=== PATIENT | female | born 1995 | race Caucasian/White ===

== ENCOUNTER 2018-02-19 22:05 | Emergency (ER) | payer BC ==
[2018-02-19] MEDS ORDERED: NORG1TAB74 PO (22:09)
--- NOTE | 2018-02-19 22:09 | ER Report ---
History and Physical Time Seen By MD: 22:08 HPI/ROS CHIEF COMPLAINT: Vomiting and diarrhea HISTORY OF PRESENT ILLNESS: 22-year-old female presents ambulatory to the ER complaining of diarrhea since early afternoon. She is currently on amoxicillin , day 8 for strep pharyngitis. Patient denies recent travel or exposure to ill contacts. She denies consumption of bad food. She notes diffuse crampy abdominal pain 07/05. She said several episodes of vomiting without hematemesis. She notes no fevers. She denies dysuria or hematuria REVIEW OF SYSTEMS: Respiratory: No cough, no dyspnea. Cardiovascular: No chest pain, no palpitations. Gastrointestinal: As above Musculoskeletal: No back pain. Allergies: Coded Allergies: No Known Drug Allergies (Unverified , 02/19/18) Home Meds Active Scripts Ondansetron (ZOFRAN ODT) 4 Mg Tab.rapdis, 4 MG PO every 6 hours Y for NAUSEA/ VOMITING, #15 TAB TAKE 1 TABLET BY MOUTH EVERY 12 HOURS Prov:SYLVIE GUTIÉRREZ DO 02/19/18 Tramadol Hcl (TRAMADOL HCL) 50 Mg Tablet, 1 TAB PO Q6H Y for PAIN, #15 MG TAKE ONE TO TWO TABLETS BY MOUTH EVERY FOUR TO SIX HOURS NEEDED Prov:SYLVIE GUTIÉRREZ DO 02/19/18 Reported Medications Norgestimate-Ethinyl Estradiol (SPRINTEC) 1 Each Tablet, 1 EACH PO DAILY 02/19/18 Reviewed Nurses Notes: Yes Old Medical Records Reviewed: Yes Constitutional Vital Sign - Last 24 Hours 02/19/18 02/19/18 02/19/18 02/19/18 22:09 22:15 22:45 23:00 Temp 98.3 Pulse 100 71 75 72 Resp 14 B/P (MAP) 144/108 120/83 (95) Pulse Ox 95 90 98 94 O2 Delivery Room Air 02/19/18 23:30 Pulse 85 Resp 14 B/P (MAP) 123/71 (88) Pulse Ox 94 O2 Delivery Room Air Physical Exam General Appearance: The patient is alert, has no immediate need for airway protection and no current signs of toxicity. Vital signs stable, afebrile, pulse ox normal, slightly pale appearing, skin warm and dry HEENT: Pupils equal and round no injection. Oropharynx with moist mucous membranes, no erythema Respiratory: Chest is non tender, lungs are clear to auscultation. Cardiac: regular rate and rhythm Gastrointestinal: Abdomen is soft, mild diffuse tenderness, no masses, bowel sounds hyperactive Musculoskeletal: Neck: Neck is supple and non tender. No lymphadenopathy Extremities have full range of motion and are non tender. Skin: No rashes or lesions. DIFFERENTIAL DIAGNOSIS: After history and physical exam differential diagnosis was considered for abdominal pain including but not limited to appendicitis, cholecystitis, gastritis, gastroenteritis, food poisoning, viral syndrome, Clostridium difficile diarrhea and urinary tract infection. Medical Decision Making Data Points Result Diagram: 02/19/18220802/19/182208 Laboratory Hematology Test 02/19/18 22:09 02/19/18 22:28 Red Blood Count 5.68 M/uL (4.17-5.56) Mean Corpuscular Volume 85.1 fL (80.0-96.0) Mean Corpuscular Hemoglobin 29.9 pg (26.0-33.0) Mean Corpuscular Hemoglobin Concent 35.1 g/dL (32.0-36.0) Red Cell Distribution Width 13.4 % (11.5-14.5) Mean Platelet Volume 7.5 fL (7.2-11.1) Neutrophils (%) (Auto) 85.6 % (39.4-72.5) Lymphocytes (%) (Auto) 8.0 % (17.6-49.6) Monocytes (%) (Auto) 5.4 % (4.1-12.4) Eosinophils (%) (Auto) 0.3 % (0.4-6.7) Basophils (%) (Auto) 0.7 % (0.3-1.4) Nucleated RBC Relative Count (auto) 0.1 /100WBC Neutrophils # (Auto) 11.8 K/uL (2.0-7.4) Lymphocytes # (Auto) 1.1 K/uL (1.3-3.6) Monocytes # (Auto) 0.7 K/uL (0.3-1.0) Eosinophils # (Auto) 0.0 K/uL (0.0-0.5) Basophils # (Auto) 0.1 K/uL (0.0-0.1) Nucleated RBC Absolute Count (auto) 0.01 K/uL Sodium Level 137 mmol/L (137-145) Potassium Level 3.5 mmol/L (3.5-5.0) Chloride Level 101 mmol/L (98-107) Carbon Dioxide Level 23 mmol/L (22-31) Blood Urea Nitrogen 8 mg/dl (7-18) Creatinine 0.80 mg/dl (0.52-1.04) Glomerular Filtration Rate Calc > 60.0 Random Glucose 107 mg/dl (75-110) Calcium Level 10.1 mg/dl (8.4-10.2) Total Bilirubin 0.4 mg/dl (0.2-1.3) Aspartate Amino Transf (AST/SGOT) 25 U/L (0-35) Alanine Aminotransferase (ALT/SGPT) 38 U/L (0-56) Alkaline Phosphatase 98 U/L (0-126) Total Protein 8.8 gm/dl (6.3-8.2) Albumin 4.7 g/dl (3.5-5.0) Amylase Level 112 U/L (0-110) Lipase 79 U/L (23-300) Human Chorionic Gonadotropin, Qual Negative (NEGATIVE) Urine Color Yellow Urine Clarity Slightly-cloudy Urine pH 5.0 pH (4.8-9.5) Urine Specific [place] 1.017 Urine Protein Negative mg/dL (NEGATIVE) Urine Glucose (UA) Negative mg/dL (NEGATIVE) Urine Ketones Trace mg/dL (NEGATIVE) Urine Blood Negative (NEGATIVE) Urine Nitrite Negative (NEGATIVE) Urine Bilirubin Negative (NEGATIVE) Urine Urobilinogen Negative mg/dL (0.2-1.9) Urine Leukocyte Esterase Negative (NEGATIVE) Urine RBC 2 /HPF (0-2/HPF) Urine WBC <1 /HPF (0-5/HPF) Urine Squamous Epithelial Cells Many /LPF (</=FEW) Urine Bacteria Few /HPF (NONE-FEW) Urine Mucus Few /HPF (NONE-FEW) Stool Leukocytes, Qualitative Positive Clostridium Difficile Toxin A & B Negative Clostridium difficile Antigen Positive Chemistry Test 02/19/18 22:09 02/19/18 22:28 White Blood Count 13.8 k/uL (4.5-11.0) Red Blood Count 5.68 M/uL (4.17-5.56) Hemoglobin 17.0 g/dL (12.0-16.0) Hematocrit 48.3 % (34.0-47.0) Mean Corpuscular Volume 85.1 fL (80.0-96.0) Mean Corpuscular Hemoglobin 29.9 pg (26.0-33.0) Mean Corpuscular Hemoglobin Concent 35.1 g/dL (32.0-36.0) Red Cell Distribution Width 13.4 % (11.5-14.5) Platelet Count 425 K/uL (150-450) Mean Platelet Volume 7.5 fL (7.2-11.1) Neutrophils (%) (Auto) 85.6 % (39.4-72.5) Lymphocytes (%) (Auto) 8.0 % (17.6-49.6) Monocytes (%) (Auto) 5.4 % (4.1-12.4) Eosinophils (%) (Auto) 0.3 % (0.4-6.7) Basophils (%) (Auto) 0.7 % (0.3-1.4) Nucleated RBC Relative Count (auto) 0.1 /100WBC Neutrophils # (Auto) 11.8 K/uL (2.0-7.4) Lymphocytes # (Auto) 1.1 K/uL (1.3-3.6) Monocytes # (Auto) 0.7 K/uL (0.3-1.0) Eosinophils # (Auto) 0.0 K/uL (0.0-0.5) Basophils # (Auto) 0.1 K/uL (0.0-0.1) Nucleated RBC Absolute Count (auto) 0.01 K/uL Glomerular Filtration Rate Calc > 60.0 Calcium Level 10.1 mg/dl (8.4-10.2) Total Bilirubin 0.4 mg/dl (0.2-1.3) Aspartate Amino Transf (AST/SGOT) 25 U/L (0-35) Alanine Aminotransferase (ALT/SGPT) 38 U/L (0-56) Alkaline Phosphatase 98 U/L (0-126) Total Protein 8.8 gm/dl (6.3-8.2) Albumin 4.7 g/dl (3.5-5.0) Amylase Level 112 U/L (0-110) Lipase 79 U/L (23-300) Human Chorionic Gonadotropin, Qual Negative (NEGATIVE) Urine Color Yellow Urine Clarity Slightly-cloudy Urine pH 5.0 pH (4.8-9.5) Urine Specific [place] 1.017 Urine Protein Negative mg/dL (NEGATIVE) Urine Glucose (UA) Negative mg/dL (NEGATIVE) Urine Ketones Trace mg/dL (NEGATIVE) Urine Blood Negative (NEGATIVE) Urine Nitrite Negative (NEGATIVE) Urine Bilirubin Negative (NEGATIVE) Urine Urobilinogen Negative mg/dL (0.2-1.9) Urine Leukocyte Esterase Negative (NEGATIVE) Urine RBC 2 /HPF (0-2/HPF) Urine WBC <1 /HPF (0-5/HPF) Urine Squamous Epithelial Cells Many /LPF (</=FEW) Urine Bacteria Few /HPF (NONE-FEW) Urine Mucus Few /HPF (NONE-FEW) Stool Leukocytes, Qualitative Positive Clostridium Difficile Toxin A & B Negative Clostridium difficile Antigen Positive Urinalysis Test 02/19/18 22:28 Urine Color Yellow Urine Clarity Slightly-cloudy Urine pH 5.0 pH (4.8-9.5) Urine Specific [place] 1.017 Urine Protein Negative mg/dL (NEGATIVE) Urine Glucose (UA) Negative mg/dL (NEGATIVE) Urine Ketones Trace mg/dL (NEGATIVE) Urine Blood Negative (NEGATIVE) Urine Nitrite Negative (NEGATIVE) Urine Bilirubin Negative (NEGATIVE) Urine Urobilinogen Negative mg/dL (0.2-1.9) Urine Leukocyte Esterase Negative (NEGATIVE) Urine RBC 2 /HPF (0-2/HPF) Urine WBC <1 /HPF (0-5/HPF) Urine Squamous Epithelial Cells Many /LPF (</=FEW) Urine Bacteria Few /HPF (NONE-FEW) Urine Mucus Few /HPF (NONE-FEW) Microbiology Microbiology Date/Time Source Procedure Growth Status 02/19/18 22:28 Stool Gram Stain - Final Resulted 02/19/18 22:28 Stool Stool Culture Pending Resulted ED Course/Re-evaluation Clinical Indication for ER IV: Hydration, IV Access ED Course Patient was admitted to an examination room. H&P was done. The differential diagnoses was considered. On clinical examination. Patient with vomiting and diarrhea. She has severe cramps. She's only had symptoms for a few hours. I think that her bloody diarrhea is likely from rectal irritation. I don't think she is having true blood in her diarrhea. Patient could have Clostridium differential is still. She is on amoxicillin. A toxin assay was negative. Her white blood cell count was 13.8. Patient's advised to discontinue her amoxicillin. I do not think Cipro or Flagyl are indicated at this time. Patient's advised clear liquid diet with ibuprofen for inflammatory pain relief. Patient's given a prescription for tramadol and Zofran for symptomatically relief. Decision to Disposition Date: Feb 19, 2018 Decision to Disposition Time: 23:29 Depart Departure Latest Vital Signs Vital Signs Date Time Temp Pulse Resp B/P (MAP) Pulse Ox O2 Delivery O2 Flow Rate FiO2 02/19/18 23:30 85 14 123/71 (88) 94 Room Air 02/19/18 22:09 98.3 Impression: Primary Impression: Bloody diarrhea Condition: Improved Disposition: HOME OR SELF-CARE New Scripts Ondansetron (ZOFRAN ODT) 4 Mg Tab.rapdis 4 MG PO every 6 hours Y for NAUSEA/VOMITING, #15 TAB TAKE 1 TABLET BY MOUTH EVERY 12 HOURS Prov: SYLVIE GUTIÉRREZ DO 02/19/18 Tramadol Hcl (TRAMADOL HCL) 50 Mg Tablet 1 TAB PO Q6H Y for PAIN, #15 MG TAKE ONE TO TWO TABLETS BY MOUTH EVERY FOUR TO SIX HOURS NEEDED Prov: SYLVIE GUTIÉRREZ DO 02/19/18 Patient Instructions: Acute Diarrhea (ED), Clear Liquid Diet (ED) Additional Instructions: Take ibuprofen 200 mg 3 tablets 3 times a day Follow clear liquid diet for 24-48 hours, then advance to the brat diet, bananas , rice, applesauce, toast Avoid fatty food, greasy foods, dairy, vegetables Discontinue amoxicillin Follow-up with primary care or student health if unimproved in 3-5 days SYLVIE GUTIÉRREZ DO Feb 19, 2018 22:09
[2018-02-19] MEDS ORDERED: NS(*) 0.9% 1000 ML BAG 1,000 ML IV ONE (22:16)
[2018-02-19] MEDS ORDERED: fentaNYL CITR 100 MCG/2 ML AMP IVP ONE (22:20)
[2018-02-19] MEDS ORDERED: KETOROLAC 30 MG/ML VIAL IVP ONE (22:20)
[2018-02-19] MEDS ORDERED: ONDANSETRON 4 MG/2 ML VIAL IVP ONE (22:20)
[2018-02-19 22:23] LABS: PLATELET COUNT, AUTOMATED 425 K/uL (150-450)
[2018-02-19 23:30] VITALS: BP 123/71
[2018-02-19] MEDS ORDERED: TRAM-420 PO (23:33)
[2018-02-19] MEDS ORDERED: ONDA4TAB PO (23:33)
[2018-02-19] MEDS ORDERED: traMADol 50 MG TAB TH 2 TAB/BOTTLE PO ONE (23:35)
[2018-02-19] MEDS ORDERED: ONDANSETRON 4 MG ODT TH SL ONE (23:35)
== END 2018-02-19 23:44 | disposition home or self-care (01) ==
LOC: ER 22:18
DX: R19.5 Other fecal abnormalities (principal)
CPT/HCPCS: 81001; 82150; 83630; 83690; 84703; 85025; 87045; 87205; 87324; 87449; 96361; 96374; 96375; 99284; C9399; J1885; J2405; J3010; J7030; S0119; 82040; 82247; 82310; 82374; 82435; 82565; 82947; 84075; 84132; 84155; 84295; 84450; 84460; 84520